=== PATIENT | female | born 1950 | race Caucasian/White ===

== ENCOUNTER 2018-04-29 07:30 | Inpatient (IN) | payer OTHER, BC ==
--- NOTE | 2018-04-29 06:53 | PDHPUP ---
History & Physical Update H&P update statement: This history and physical update is based on an assessment of the patient which was completed after admission or registration (within 24 hours), but prior to the surgery/procedure. H&P update: H&P reviewed & patient examined, no change in patient's condition since H&P completed
[2018-04-29] MEDS ORDERED: GABAPENTIN 300 MG CAP PO ONE (08:10)
[2018-04-29] MEDS ORDERED: ceFAZolin 2 GM/DEXTROSE 100 ML IV ONE (08:10)
[2018-04-29] MEDS ORDERED: ACETAMINOPHEN 500 MG TAB PO ONE (08:10)
[2018-04-29] MEDS ORDERED: LIDOCAINE 1% 2 ML INJ ID PRN (08:11)
[2018-04-29] MEDS ORDERED: LR 1,000 ML IV ONE (08:11)
[2018-04-29] MEDS ORDERED: CHLORHEXIDINE GLUC HIBICLENS 118 ML BTL TP ONE (09:32)
[2018-04-29] MEDS ORDERED: EPINEPHrine 1 MG/ML INJ ONE (09:32)
[2018-04-29] MEDS ORDERED: THROMBIN (BOVINE) 5,000 UNIT VIAL TP ONE (09:32)
[2018-04-29] MEDS ORDERED: BUPIVACAINE 0.25% 30 ML SDV ONE (09:32)
[2018-04-29] MEDS ORDERED: BACITRACIN 50,000 UNITS/10 ML SYR IRR ONE ×3 (09:33→13:56)
[2018-04-29] MEDS ORDERED: PROPOFOL 200 MG/20 ML VIAL ONE (10:31)
[2018-04-29] MEDS ORDERED: fentaNYL 100 MCG/2 ML INJ ONE ×3 (10:32→16:12)
[2018-04-29] MEDS ORDERED: THROMBIN (BOVINE) 20,000 UNIT VIAL TP ONE (10:48)
[2018-04-29] MEDS ORDERED: DEXAMETHASONE 4 MG/ML VIAL ONE (11:13)
[2018-04-29] MEDS ORDERED: ONDANSETRON 4 MG/2 ML VIAL ONE (11:13)
[2018-04-29] MEDS ORDERED: LIDOCAINE 2% 2 ML INJ ONE (11:13)
[2018-04-29] MEDS ORDERED: ROCURONIUM 50 MG/5 ML VIAL ONE (11:13)
[2018-04-29] MEDS ORDERED: ACETAMINOPHEN 325 MG TAB PO PRN (11:13)
[2018-04-29] MEDS ORDERED: LACTULOSE 20 GM/30 ML UDCUP PO PRN (11:14)
[2018-04-29] MEDS ORDERED: diphenhydrAMINE 25 MG CAP PO PRN (11:14)
[2018-04-29] MEDS ORDERED: BISACODYL 10 MG SUPP PR PRN (11:14)
[2018-04-29] MEDS ORDERED: MAGNESIUM HYDROXIDE 30 ML UDCUP PO PRN (11:14)
[2018-04-29] MEDS ORDERED: NS 1,000 ML IV SCH (11:15)
[2018-04-29] MEDS ORDERED: ePHEDrine SULFATE 25 MG/5 ML SYR ONE (11:32)
[2018-04-29] MEDS ORDERED: ALBUTEROL 3 ML DEYVIAL IH PRN (12:16)
[2018-04-29] MEDS ORDERED: ONDANSETRON 4 MG/2 ML VIAL IVP PRN (12:16)
[2018-04-29] MEDS ORDERED: DEXAMETHASONE 4 MG/ML VIAL IVP PRN (12:16)
[2018-04-29] MEDS ORDERED: NALOXONE HCL 0.4 MG/ML INJ IVP PRN (12:16)
--- NOTE | 2018-04-29 12:18 | PDANEPAE ---
ANE History of Present Illness TLIF ANE Past Medical History - Cardiovascular History Hx Hypertension: No Hx Arrhythmias: No Hx Chest Pain: No Hx Coronary Artery / Peripheral Vascular Disease: No Hx CHF / Valvular Disease: Yes Hx Palpitations: No Cardiovascular History Comment: mild mitral valve prolapse- asymptomatic, was seeing Dr. Shafer at [facility]- will obtain records - Pulmonary History Hx COPD: No Hx Asthma/Reactive Airway Disease: No Hx Recent Upper Respiratory Infection: No Hx Oxygen in Use at Home: No Hx Sleep Apnea: No Sleep Apnea Screening Result - Last Documented: Negative - Neurologic History Hx Cerebrovascular Accident: No Hx Seizures: No Hx Dementia: No Neurologic History Comment: numbness and tingling to bilateral legs and feet with burning to feet- pretty constant - Endocrine History Hx Diabetes: No Endocrine History Comment: large thyroid nodule- has been determined it is benign - Renal History Hx Renal Disorders: No Renal History Comment: hx of bladder prolapse repair - Liver History Hx Hepatic Disorders: No - Neurological & Psychiatric Hx Hx Neurological and Psychiatric Disorders: No Neurological / Psychiatric History Comment: VIJAYA - Cancer History Hx Cancer: No - Congenital Disorder History Hx Congenital Disorders: Yes Congenital History Comment: LOURDES DANLOS DISORDER - GI History Hx Gastrointestinal Disorders: Yes Gastrointestinal History Comment: IBSD. GERD - Other Health History Other Health History: wears bilateral hearing aides. mast cell activation syndrome - Chronic Pain History Chronic Pain: Yes (lower back, c-spine) - Surgical History Prior Surgeries: SHOULDER RECONS 1-left & 2 -right. vijaya. ERCP. bladder prolapse repair. bunionectomy and metatarsal repair- bilaterally. hysterectomy. tonsillectomy. breast lumpectomy. hyperplastic colon polyp removed. dental implants ANE Review of Systems Review of Systems: - Exercise capacity METS (RN): 4 METS ANE Patient History - Allergies Allergies/Adverse Reactions: Corticosteroids (Glucocorticoids) Allergy (Verified 04/29/18 08:42) intense - Home Medications Home Medications: Acetaminophen [Tylenol 325mg (*)] 325 mg PO DAILY PRN 04/16/18 [Last Taken 04/26] Cetirizine [ZyrTEC 10 mg (*)] 40 mg PO DAILY 04/16/18 [Last Taken 04/22/18] Estradiol [Estrace Vaginal (*)] 1 imer VG Q3D 04/16/18 [Last Taken 04/22/18] Famotidine [Pepcid 20 MG (*)] 10 mg PO BID 04/16/18 [Last Taken 04/29/18 06:30] Herbals/Supplements -Info Only 1 ea PO DAILY 04/16/18 [Last Taken 04/22/18] metroNIDAZOLE 0.75% [Vandazole Vaginal Gel (RX)] 1 imer VG BID 04/16/18 [Last Taken 04/28/18] - NPO status NPO Since - Liquids (Date): 04/29/18 NPO Since - Liquids (Time): 06:30 NPO Since - Solids (Date): 04/28/18 NPO Since - Solids (Time): 17:30 - Smoking Hx Smoking Status: Never smoked - Family Anes Hx Family Hx Anesthesia Complications: none ANE Labs/Vital Signs - Vital Signs Blood Pressure: 115/73 Heart Rate: 57 Respiratory Rate: 18 O2 Sat (%): 94 Height: 170.18 cm Weight: 71.21 kg ANE Physical Exam - Airway Neck exam: FROM Mallampati Score: Class 2 Mouth exam: normal dental/mouth exam - Pulmonary Pulmonary: clear to auscultation - Cardiovascular Cardiovascular: regular rate and rhythym - ASA Status ASA Status: II ANE Anesthesia Plan Anesthesia Plan: general endotracheal anesthesia
[2018-04-29] MEDS ORDERED: ceFAZolin 1 GM VIAL ONE (15:19)
--- NOTE | 2018-04-29 15:58 | POSTOPPROG ---
Post Op Note Date of Operation: 04/29/18 Surgeon: Radha Ball [employer] Claim Adjuster: Cindy Stiles PA-C Anesthesiologist: Harsha Anesthesia: GET(General Endotracheal), Local (Specify) Pre-op Diagnosis: Lumbar stenosis L3-S1 Post-op Diagnosis: Lumbar stenosis L3-S1 Indication: LE pain and LBP Procedure: L3/4, L4/5 and L5/S1 TLIF Findings: none Inf/Abcess present in the surg proc area at time of surgery?: No Depth: Deep Incisional (Fascial) EBL: 100-500 Total fluids administered: see anesthesia record Complications: none Drains: Jluis Schmidt
--- NOTE | 2018-04-29 16:03 | SOAPPROG ---
SOAP Progress Note Assessment/Plan: Post Op Visit: S: Awake and alert, NAD. Pt with expected lower back pain O: AAO x 3 PERRLA/EOMI no droop CN 2-12 grossly intact +lt touch 5/5 BUE/BLE= ANA CRISTINA in place and working well A/P: 67 yo female that is s/p TLIF L3-S1 -orders in place -call with any questions or concerns -pt seen by Dr Ball as well -PT/OT -brace when out of bed Objective: Vital Signs Temp Pulse Resp BP Pulse Ox 36.9 C 57 L 18 115/73 94 04/29/18 09:32 04/29/18 12:18 04/29/18 12:18 04/29/18 12:18 04/29/18 12:18 ICD10 Worksheet Patient Problems: Problems Problem Status Onset Arthrodesis status Acute Lumbago Acute Lumbar radicular pain Acute Lumbar spine pain Acute - ICD10 Problem Qualifiers (1) Lumbar spine pain (2) Lumbago (3) Lumbar radicular pain (4) Arthrodesis status
--- NOTE | 2018-04-29 16:13 | POSTANESTH ---
Post Anesthetic Evaluation Cardiovascular Status: Normal, Stable Respiratory Status: Normal, Stable Level of Consciousness/Mental Status: Can Participate in Eval, Alert and Oriented Pain Control: Adequate, Prn Tx Ordered Nausea/Vomiting Control: Adequate, Prn Tx Ordered Complications Possibly Related to Anesthesia: None Noted
[2018-04-29] MEDS: fentaNYL 100 MCG/2 ML INJ IVP PRN ×4 (16:23→17:04)
[2018-04-29] MEDS: ONDANSETRON 4 MG/2 ML VIAL IVP PRN (17:48)
[2018-04-29] MEDS: ACETAMINOPHEN 500 MG TAB PO SCH ×2 (18:22→22:18)
[2018-04-29] MEDS: fentaNYL 100 MCG/2 ML INJ IV PRN ×2 (18:23→19:38)
[2018-04-29] MEDS: GABAPENTIN 300 MG CAP PO SCH ×2 (18:28→22:17)
[2018-04-29] MEDS: ceFAZolin 2 GM/DEXTROSE 100 ML IV SCH (18:29)
[2018-04-29] MEDS: ONDANSETRON DISINTEGRATING 4 MG TAB PO PRN ×2 (19:39→22:19)
[2018-04-29] MEDS: FAMOTIDINE 20 MG TAB PO SCH ×2 (21:14)
[2018-04-29] MEDS: SENNOSIDES/DOCUSATE SODIUM TAB PO SCH (21:15)
[2018-04-29] MEDS: METHOCARBAMOL 750 MG TAB PO PRN (21:18)
[2018-04-29] MEDS: METRONIDAZOLE 0.75% VG SCH (22:17)
[2018-04-30] MEDS: ceFAZolin 2 GM/DEXTROSE 100 ML IV SCH (02:22)
--- NOTE | 2018-04-30 03:50 | GOP ---
DATE OF OPERATION: 04/29/2018 SURGEON: Yogesh Ball MD INGOT STRIPPER: Skyler Stiles PA-C. PREOPERATIVE DIAGNOSIS: Bilateral lumbosacral radiculopathy with spondylolisthesis L3-4, L4-5, a degenerative scoliosis of the lumbar spine to the right at L3-4, L4-5, and to the left at L5-S1 with severe left L5-S1 foraminal stenosis, central stenosis L3-4, L4-5. POSTOPERATIVE DIAGNOSIS: Bilateral lumbosacral radiculopathy with spondylolisthesis L3-4, L4-5, a degenerative scoliosis of the lumbar spine to the right at L3-4, L4-5, and to the left at L5-S1 with severe left L5-S1 foraminal stenosis, central stenosis L3-4, L4-5. PROCEDURE PERFORMED: FINDINGS: Were consistent with MRI. SPECIMENS: None. ESTIMATED BLOOD LOSS: 250 cc. DESCRIPTION OF PROCEDURE: The patient was taken to the operating room, placed in supine position. General anesthesia was begun. She was flipped prone onto the Jluis table. Care was taken to pad all points of contact. Her back was sterilely prepped and draped in the usual fashion. A localizing x-ray was taken. We made a midline incision from the spinous process of L2, the spinous process of S1. The subcutaneous tissue was dissected using Bovie cautery down to the fascia and a subperiosteal dissection was made down the L3-4, L5-S1 lamina. A self-retaining retractor was placed. A localizing x-ray was taken. We denuded the bilateral 3-4, 4-5,5-1 facets to create arthrodesis. We preserved the L2-3 facets rostrally. We attached the Stealth reference frame, performed an O-arm spin and using frame of Stealth stereotaxy, placed pedicle screws bilaterally at the sacrum at L5, L4, and L3. The L3 screws were in a trajectory to try to spare the L2-3 facet joint above. The screws stimulated at acceptable levels. 3D imaging was performed to confirm all the screw positions. We placed a 90 mm suzan on the left and 100 mm suzan on the right. We placed the rods down over the tulips , distracted on the left at 5-1 and on the right at 3-4, 4-5 and then final tightened all the cap screws. This maneuver alone had reduced the degenerative scoliotic curve and the spondylolisthesis was reduced. She had only a grade 1 spondylolisthesis to begin with. Good excellent alignment. Had a nice lumbar lordosis. We removed all the soft tissue to bone at L3-4, 4-5, 5-1.. We harvested the L4 and L5 spinous process. We drilled bilateral laminectomies at L3-4, 4-5 and harvested this bone for autologous grafting purposes. We drilled a left L5-S1 hemilaminectomy and complete facetectomy and harvested this bone for autologous grafting purposes. Under the microscope, we opened the spinal canal and decompressed the left hemicanal at L5-S1 including the left foramina of the exiting L5 nerve root. At L4-5, we decompressed bilaterally from pedicle to pedicle on each side. We preserved the left facet joint at L4-5 and at L3-4 and we did likewise at both levels, decompressing bilaterally, performing a central and bilateral recess decompression on each side. On the right at 3-4 and 4-5 we removed the facet joints and medically decompressed the exiting nerves. Under the microscope, we then swept the left S1 nerve root medially, incised the L5-S1 disk, removed the disk and the cartilaginous endplates. We roughened the subchondral bone to create arthrodesis at L5-S1 and then we did likewise at 3-4 and 4-5 from the right side. We moved the disk completely, roughened the subchondral bone to create arthrodesis. We sized each space and chose a 7 x 28 mm device. We inserted BMP and bone into the disk spaces followed by the 7 x 28 mm device with a large amount of bone autograft that we had harvested. We placed 9 strips of BMP, 3 total in each of the interspaces at 3-4, 4-5, 5-1. These were 1/4 BMP pads, inserted the device, and expanded under fluoroscopic guidance and we were happy with the position of all 3 devices. We then decorticated all the remaining posterolateral bone bilaterally. All the screws had been torqued to company specification. We placed bone autograft and BMP posterolaterally bilaterally and then placed a subfascial drain. WE then closed the incision in multiple layers using Vicryl sutures. A running PDS was placed in the skin itself. The patient was reversed from anesthesia, extubated, and transferred to recovery room in stable condition. PROCEDURE: Posterior lateral and intervertebral arthrodesis L3-4, L4-5, L5-S1 ( 07457, 23400 x 2), bilateral laminectomies at L3-4, L4-5, and left L5-S1 hemilaminectomy with complete facetectomy on the left at L5-S1 and on the right at L3-4, L4-5, with no surgical codes for this that is included in the prior code. We placed biomechanical intervertebral devices at L3-4, 4-5, 5-1 (55201 x 3, posterior segmental instrumentation L3, L4, L5, S1 (91742), microscope, same incision bone graft harvest, spinal stereotaxy. COMPLICATIONS: None. INSTRUMENTATION USE: A 5.5 mm Solera screw. We used a 100 mm suzan on the right and a 90 mm suzan on the left. They were titanium rods and we used a medium bone morphogenic protein. We used 3 7 x 28 mm Elevate cages. All of the screws were 6.5 mm in diameter. COMPLICATIONS: None. INDICATIONS FOR THE PROCEDURE: The patient is suffering from bilateral lumbosacral radiculopathy that varied from side to side. At times, the right was worse. At other times, the left was worse and I thought most of her symptoms originally were coming from L3-4, L4-5, but she did have very significant left leg symptoms at L5-S1. The left neural foramen for the exiting L5 nerve root was extremely stenotic. There was a degenerative leftward tilt of L5 on S1 and because of this, I felt that it needed to be included because of the left leg symptoms. She did have stenosis at L3-4, L4-5 centrally in the bilateral recesses at those levels, but the left leg symptoms prompted me to add the additional level at the lumbosacral junction. L3-4 and L4-5 were tilted to the right with right-sided foraminal stenosis at those levels. I discussed with the risk of adjacent segment disease, nerve injury, spinal fluid leak, continued symptoms, back pain, and she wanted to proceed despite the risks. She knew that additional surgery may become necessary in the future. There is risk of spinal fluid leak and even infection and she wanted to proceed despite these risks. /[id number]/MODL MTDD
[2018-04-30 04:31] LABS: PLATELET COUNT 176 10^3/uL (150-400)
[2018-04-30] MEDS: GABAPENTIN 300 MG CAP PO SCH ×3 (05:43→23:08)
[2018-04-30] MEDS: ACETAMINOPHEN 500 MG TAB PO SCH ×3 (05:44→23:06)
--- NOTE | 2018-04-30 08:08 | NEUSURGPN ---
Date of Surgery: 04/29/18 Post Op Day: 1 Assessment/Plan: Assessment: 67 yo female that is s/p TLIF L3-S1 POD#1 Plan: -Post op xrays pending -ANA CRISTINA 280ml output overnight, will removed this evening -PT/OT -brace when out of bed -Patient with left hand numbness, will continue to follow -Dr Ball will see patient as well Please call neurosurgery with any questions/concerns Subjective: Leg pain improved, expected incisional pain, happy with results Objective: Awake and alert. Pt with expected lower back pain. Leg pain improved AAO x 3 +lt touch 5/5 BUE/BLE= ANA CRISTINA patent Neuro Check Frequency: per routine Urinary Catheter in Place: No Catheter Insertion Date: 04/29/18 - Physician Discussed Patient with : Quinn Patient Seen by : Quinn Neurosurgery Physical Exam - Vitals, I&O, Labs I and O 04/29/18 04/30/18 05/01/18 05:59 05:59 05:59 Intake Total 2980 500 Output Total 1060 1800 Balance 1920 -1300 Weight 71.21 kg Intake: Oral (ml) 265 500 IV Intake (ml) 1700 IV Infused (ml) 1015 Ns 1,000 ml @ 75 mls/hr 900 IV CONT TRISTON Rx#: [id number] ceFAZolin 2 GM/DEXTROSE 115 100 ml @ 200 mls/hr IV Q8H TRISTON Rx#:[id number] Output: Urine (ml) 530 1800 Catheter 530 1800 Estimated Blood Loss (ml) 250 ANA CRISTINA Drain Output (ml) 280 #1 Back Jluis Schmidt 280 Vital Signs Temp Pulse Resp BP Pulse Ox 36.7 C 89 16 104/67 98 04/30/18 07:52 04/30/18 07:52 04/30/18 07:52 04/30/18 07:52 04/30/18 07:52 Laboratory Results 04/30/18 04:14 04/30/18 04:14 ICD10 Worksheet Patient Problems: Problems Problem Status Onset Arthrodesis status Acute Lumbago Acute Lumbar radicular pain Acute Lumbar spine pain Acute
[2018-04-30] MEDS: FAMOTIDINE 20 MG TAB PO SCH ×3 (08:21→23:05)
[2018-04-30] MEDS: SENNOSIDES/DOCUSATE SODIUM TAB PO SCH ×2 (08:21→23:06)
[2018-04-30] MEDS: POLYETHYLENE GLYCOL 3350 17 GM PKT PO PRN (08:21)
[2018-04-30] MEDS: METHOCARBAMOL 750 MG TAB PO PRN ×2 (08:22→16:19)
[2018-04-30] MEDS ORDERED: CETIRIZINE 10 MG TAB PO SCH (09:00)
--- NOTE | 2018-04-30 09:56 | PDMN ---
Medical Necessity Medical necessity: [facility] IP only surgery; cpt 95276 Lumbar Fusion (L3/S1 TLIF)
--- NOTE | 2018-04-30 10:26 | ASMTCMCOM ---
CM Note CM Note Notes: Spoke with pt and in the room. Pt lives independently with , admitted for lower radiating back pain and had lumbar arthrodesis, laminectomy and facetectomy yesterday. Worked with PT this morning. PT recommending home independently, but pt endorses increased pain after PT and slight concern over that plan. Pt's also concerned. Pt feels it will likely be a good plan to go home independently but would like to work with OT to establish confidence. D/C Plan: likely independent, TBD Date Signed: 04/30/2018 10:25 AM Electronically Signed By:Cathie Oconnell
[2018-04-30] MEDS: METRONIDAZOLE 0.75% VG SCH ×2 (11:14→22:57)
--- NOTE | 2018-04-30 14:18 | ASMTCMCOM ---
CM Note CM Note Notes: Addendum to previous note: Pt has been preapproved for [facility] if pt decides she wants home care. Nica is the contact for [facility] and is happy to speak with the patient if that is helpful. Her number is [phone]. Gal is the ordering physician's choice. Date Signed: 04/30/2018 02:17 PM Electronically Signed By:Cathie Oconnell
[2018-04-30] MEDS: CETIRIZINE 10 MG TAB PO SCH (23:05)
[2018-05-01] MEDS: ACETAMINOPHEN 500 MG TAB PO SCH ×3 (05:27→20:57)
[2018-05-01] MEDS: GABAPENTIN 300 MG CAP PO SCH ×3 (05:28→20:58)
[2018-05-01] MEDS: METHOCARBAMOL 750 MG TAB PO PRN ×3 (05:39→16:41)
--- NOTE | 2018-05-01 08:17 | NEUSURGPN ---
Assessment/Plan: Assessment: 67 yo female that is s/p TLIF L3-S1 POD#2 Plan: -Post op xrays show stable hardware -ANA CRISTINA drain is out -PT/OT -brace when out of bed -Patient with left hand numbness, will continue to follow - this is improving -Pt with increased pain this am, cont current regimen with tylenol, morphine, robaxin. Add polar care ice pack -Dr Dr Ball Please call neurosurgery with any questions/concerns Subjective: Pt resting in bed, states pain goes up to a 7 with movement Objective: AAOx3 NAD VSS MAEx4 Motor 5/5 BLE +LT Urinary Catheter in Place: No Catheter Insertion Date: 04/29/18 - Physician Discussed Patient with : Quinn Neurosurgery Physical Exam - Vitals, I&O, Labs I and O 04/30/18 05/01/18 05/02/18 05:59 05:59 05:59 Intake Total 2980 1100 Output Total 1060 5200 Balance 1920 -4100 Weight 71.21 kg Intake: Oral (ml) 265 1100 IV Intake (ml) 1700 IV Infused (ml) 1015 Ns 1,000 ml @ 75 mls/hr 900 IV CONT TRISTON Rx#: [id number] ceFAZolin 2 GM/DEXTROSE 115 100 ml @ 200 mls/hr IV Q8H TRISTON Rx#:[id number] Output: Urine (ml) 530 5200 Catheter 530 1800 Toilet 3400 Estimated Blood Loss (ml) 250 ANA CRISTINA Drain Output (ml) 280 #1 Back Jluis Schmidt 280 Other: Bladder Scan Volume (ml) Bedside Commode 161 Vital Signs Temp Pulse Resp BP Pulse Ox 37.2 C 79 14 88/66 L 89 L 05/01/18 07:22 05/01/18 07:22 05/01/18 07:22 05/01/18 07:22 05/01/18 07:22 Laboratory Results 04/30/18 04:14 04/30/18 04:14 ICD10 Worksheet Patient Problems: Problems Problem Status Onset Arthrodesis status Acute Lumbago Acute Lumbar radicular pain Acute Lumbar spine pain Acute
[2018-05-01] MEDS: SENNOSIDES/DOCUSATE SODIUM TAB PO SCH ×2 (08:23→20:56)
[2018-05-01] MEDS: POLYETHYLENE GLYCOL 3350 17 GM PKT PO PRN (08:24)
[2018-05-01] MEDS: FAMOTIDINE 20 MG TAB PO SCH ×2 (08:27→20:56)
[2018-05-01] MEDS: METRONIDAZOLE 0.75% VG SCH ×2 (08:29→20:56)
--- NOTE | 2018-05-01 14:16 | ASMTCMCOM ---
CM Note CM Note Notes: Today pt reports she does want [facility] at d/c, Nica with [facility] updated and she visited with pt today. D/c plan of care: Home with [facility] Date Signed: 05/01/2018 02:14 PM Electronically Signed By:BUSHRA Weston
[2018-05-01] MEDS: CETIRIZINE 10 MG TAB PO SCH (20:56)
[2018-05-02] MEDS: ONDANSETRON DISINTEGRATING 4 MG TAB PO PRN (03:19)
[2018-05-02] MEDS: GABAPENTIN 300 MG CAP PO SCH ×4 (06:07→21:35)
[2018-05-02] MEDS: ACETAMINOPHEN 500 MG TAB PO SCH ×4 (06:07→21:35)
[2018-05-02] MEDS: ONDANSETRON 4 MG/2 ML VIAL IVP PRN (06:13)
[2018-05-02] MEDS ORDERED: ESTRADIOL 42.5 GM CRTUBE VG SCH (08:00)
[2018-05-02] MEDS: ENOXAPARIN 40 MG/0.4 ML SYR SC SCH (09:12)
[2018-05-02] MEDS: SENNOSIDES/DOCUSATE SODIUM TAB PO SCH ×2 (09:12→20:11)
[2018-05-02] MEDS: POLYETHYLENE GLYCOL 3350 17 GM PKT PO PRN (09:12)
[2018-05-02] MEDS: FAMOTIDINE 20 MG TAB PO SCH ×2 (09:12→21:35)
[2018-05-02] MEDS: METHOCARBAMOL 750 MG TAB PO PRN ×3 (09:13→20:21)
[2018-05-02] MEDS: METRONIDAZOLE 0.75% VG SCH ×2 (09:15→21:40)
--- NOTE | 2018-05-02 11:34 | NEUSURGPN ---
Assessment/Plan: Assessment: 67 yo female that is s/p TLIF L3-S1 POD#3 Plan: -Stable and doing well overall with pain this morning, did have problems with nausea last night. -Optimize pain management- doing better on robaxin, tylenol, gabapentin and MS IR when necessary -Still no BM- aggressive bowel regimen -Post op xrays show stable hardware -PT/OT -brace when out of bed -Dressing removed, leave steri strips no other dressing needed unless wanted for comfort -Patient with left hand numbness, will continue to follow - this is improving -Dispo- if has BM today and cleared by PT, could go home today, otherwise tomorrow -Dr Dr Ball Please call neurosurgery with any questions/concerns Subjective: Pt resting in bed, states pain better this morning at a 6/10. Had nausea last night and wonders if this could also be due to not having BM yet. Objective: AAOx3 NAD VSS MAEx4 Motor 5/5 BLE Incision c/d/i- dressing removed +LT Catheter Insertion Date: 04/29/18 - Physician Discussed Patient with : Quinn Neurosurgery Physical Exam - Vitals, I&O, Labs I and O 05/01/18 05/02/18 05/03/18 05:59 05:59 05:59 Intake Total 1100 500 Output Total 5200 850 Balance -4100 -350 Intake: Oral (ml) 1100 500 Output: Urine (ml) 5200 850 Catheter 1800 Toilet 3400 850 Other: Intake Quantity Yes Sufficient Number of Voids Toilet 1 Bladder Scan Volume (ml) Bedside Commode 161 Vital Signs Temp Pulse Resp BP Pulse Ox 36.7 C 87 16 104/66 95 05/02/18 08:00 05/02/18 08:00 05/02/18 08:00 05/02/18 08:00 05/02/18 08:00 Laboratory Results 04/30/18 04:14 04/30/18 04:14 ICD10 Worksheet Patient Problems: Problems Problem Status Onset Arthrodesis status Acute Lumbago Acute Lumbar radicular pain Acute Lumbar spine pain Acute
[2018-05-02] MEDS: CETIRIZINE 10 MG TAB PO SCH (21:35)
[2018-05-03] MEDS: METHOCARBAMOL 750 MG TAB PO PRN ×3 (01:59→14:19)
[2018-05-03] MEDS: GABAPENTIN 300 MG CAP PO SCH ×2 (05:16→14:19)
[2018-05-03] MEDS: ACETAMINOPHEN 500 MG TAB PO SCH ×2 (05:16→14:19)
[2018-05-03] MEDS: ENOXAPARIN 40 MG/0.4 ML SYR SC SCH (08:38)
[2018-05-03] MEDS: FAMOTIDINE 20 MG TAB PO SCH (08:38)
[2018-05-03] MEDS: METRONIDAZOLE 0.75% VG SCH (08:39)
[2018-05-03] MEDS: SENNOSIDES/DOCUSATE SODIUM TAB PO SCH (08:39)
[2018-05-03 09:37] VITALS: BP 135/80
--- NOTE | 2018-05-03 12:26 | NEUSURGPN ---
Assessment/Plan: Assessment: 67 yo female that is s/p TLIF L3-S1 POD#4 Plan: -Stable and doing well overall with pain this morning, had BMs yesterday and doing better with PT as well today -Optimize pain management- doing better on robaxin, tylenol, gabapentin and MS IR when necessary -Having BMs now, continue regimen as necessary -Post op xrays show stable hardware -PT/OT -brace when out of bed -Dressing removed, leave steri strips no other dressing needed unless wanted for comfort -Dispo- Doing better with PT today, ok to go home today with home health -Dr Dr Ball Please call neurosurgery with any questions/concerns Subjective: Pt in chair. Has global incisional pain and some numbness in lateral thighs but pain overall is improved since surgery. Had BM yesterday and progressed with PT today. Eager to go home today. Objective: AAOx3 NAD VSS MAEx4 Motor 5/5 BLE Incision c/d/i- dressing removed +LT Catheter Insertion Date: 04/29/18 - Physician Discussed Patient with : Quinn Neurosurgery Physical Exam - Vitals, I&O, Labs I and O 05/02/18 05/03/18 05/04/18 05:59 05:59 05:59 Intake Total 500 500 Output Total 850 Balance -350 500 Intake: Oral (ml) 500 500 Output: Urine (ml) 850 Toilet 850 Other: Intake Quantity Yes Yes Sufficient Number of Voids Bedside Commode 1 Toilet 1 1 Number of Stools Bedside Commode 1 Toilet 1 Vital Signs Temp Pulse Resp BP Pulse Ox 36.7 C 69 16 135/80 H 94 05/03/18 07:32 05/03/18 07:32 05/03/18 07:32 05/03/18 07:32 05/03/18 07:32 Laboratory Results 04/30/18 04:14 04/30/18 04:14 ICD10 Worksheet Patient Problems: Problems Problem Status Onset Arthrodesis status Acute Lumbago Acute Lumbar radicular pain Acute Lumbar spine pain Acute
--- NOTE | 2018-05-03 12:31 | PDIAF ---
- Diagnosis Code Status: Full Code - Medication Management Discharge Medications: Medications to Continue on Transfer Acetaminophen [Tylenol 325mg (*)] 325 mg PO DAILY PRN 04/16/18 [Last Taken 04/26] Cetirizine [ZyrTEC 10 mg (*)] 40 mg PO HS 04/16/18 [Last Taken 04/22/18] Estradiol [Estrace Vaginal (*)] 1 imer VG Q3D 04/16/18 [Last Taken 04/22/18] Famotidine [Pepcid 20 MG (*)] 10 mg PO BID 04/16/18 [Last Taken 04/29/18 06:30] Herbals/Supplements -Info Only 1 ea PO DAILY 04/16/18 [Last Taken 04/22/18] metroNIDAZOLE 0.75% [Vandazole Vaginal Gel] 1 imer VG BID 04/16/18 [Last Taken ] Acetaminophen [Tylenol ES 500 mg (*)] 1,000 mg PO Q8HRS tab 05/02/18 [Last Taken Unknown] Gabapentin [Neurontin 300 MG (*)] 300 mg PO Q8HRS #90 cap 05/02/18 [Last Taken Unknown] Methocarbamol [Robaxin 750 mg (*)] 750 mg PO QID PRN #60 tab 05/02/18 [Last Taken Unknown] Ondansetron Odt [Zofran Odt 4 mg (*)] 4 - 8 mg PO Q6HRS PRN #30 tab 05/02/18 [ Last Taken Unknown] Polyethylene Glycol 3350 [Miralax 17 gm (*)] 17 gm PO DAILY PRN pkt 05/02/18 [ Last Taken Unknown] Sennosides/Docusate Sodium [Senokot-S] 1 - 2 tab PO BID tab 05/02/18 [Last Taken Unknown] morphINE IR [morphINE IR 15 mg (*)] 7.5 - 15 mg PO Q4H PRN #20 tab 05/02/18 [ Last Taken Unknown] Discharge Medications: Refer to the Discharge Home Medication list for PRN reason. - Orders Services needed: Home Care, Physical Therapy Home Care Face to Face: I certify that this patient was under my care and that I had the required [id number] encounter meeting the encounter requirements on the discharge day. My findings support the fact that the patient is homebound as defined in Home Care Face to Face Continued: [facility] Chapter 7 Medicare Benefits Manual 30.1.1 , The condition of the patient is such that there exists a normal inability to leave home and consequently, leaving home would require a considerable and taxing effort. Diet Recommendation: no restrictions on diet Diet Texture: Regular Texture Diet Wound Care Instructions: Follow up with Dr. Ball in 2 weeks. No NSAIDs for 6 months. wear your brace when you are up and OOB. You may shower as of 05/03, keep short 5-7 minutes, let warm soapy wash over incision, pat dry with towel keep clean and dry. Steri strips to remain in place and will fall off on their own. No dressing needed over steri strips unless wanted for comfort. No bending , lifting, twisting more than 5-10 pounds. Monitor your incision for signs of infection. Call with any questions or concerns Activity/Weight Bearing Restrictions: Follow up with Dr. Ball in 2 weeks. No NSAIDs for 6 months. wear your brace when you are up and OOB. You may shower as of 05/03, keep short 5-7 minutes, let warm soapy wash over incision, pat dry with towel keep clean and dry. Steri strips to remain in place and will fall off on their own. No dressing needed over steri strips unless wanted for comfort. No bending, lifting, twisting more than 5-10 pounds. Monitor your incision for signs of infection. Call with any questions or concerns Additional Instructions: Follow up with Dr. Ball in 2 weeks No NSAIDs for 6 months wear your brace when you are up and OOB You may shower as of 05/03, keep short 5-7 minutes, let warm soapy wash over incision, pat dry with towel keep clean and dry. Steri strips to remain in place and will fall off on their own. No dressing needed over steri strips unless wanted for comfort No bending, lifting, twisting more than 5-10 pounds Monitor your incision for signs of infection Call with any questions or concerns - Follow Up Care Current Providers and Referrals: Katarzyna Wood MD [Primary Care Provider] - Radha Ball MD [Medical Doctor] -
--- NOTE | 2018-05-03 14:11 | ASMTDCNOTE ---
Case Management Discharge Discharge Order Complete? Answers: Yes Transportation Arranged Answers: Family/Friends Transport will Pick (Date 05/03/2018 03:00 PM & Time) Faxed Final Orders Answers: Yes Notes: [facility] Family Notified Answers: Yes Notes: Family to transport Discharge Comments Notes: Patient has been discharged home with and [facility]. Date Signed: 05/03/2018 02:10 PM Electronically Signed By:Francheska Burnham LCSW
--- NOTE | 2018-05-03 14:22 | ASDISCHSUM ---
Discharge Information Plan Status:Home with Home Health Medically Cleared to Leave:05/03/2018 Discharge Date:05/03/2018 D/C Disposition:Home Health Service [facility] D/C Disposition:Home, Routine, Self-Care Projected Discharge Date:05/03/2018 03:00 PM Transportation at D/C:Family Discharge Delay Reason: Follow-Up Date:05/03/2018 03:00 PM Discharge Slot: Final Diagnosis:Lumbar instability, Stenosis Placement Information Referral Type:*Home Health Care Services Referral ID:[id number] Provider Name:[facility] ([facility]) Address 1:[address] [place] [address] Address 2: City:[place] Selection Factors: State:[place] Referral Type:*Home Health Care Services Referral ID:[id number] Provider Name:[facility] ([facility]) Address 1:[address] [place] [address] Address 2: City:[place] Selection Factors: State:[place] Patient Contact Information Contact Name:IRIS Relationship:Daughter Address: Home Phone: City: [facility] Phone: [facility] Code: Email: Financial Information Financial Class:Medicare Primary Plan Desc:MEDICARE INPATIENT Primary Plan Number:[id number] Secondary Plan Desc:[employer] FEDERAL PLAN Secondary Plan Number:[id number] Assessment Information [facility] CM Progress Note CM Note CM Note Notes: Spoke with pt and in the room. Pt lives independently with , admitted for lower radiating back pain and had lumbar arthrodesis, laminectomy and facetectomy yesterday. Worked with PT this morning. PT recommending home independently, but pt endorses increased pain after PT and slight concern over that plan. Pt's also concerned. Pt feels it will likely be a good plan to go home independently but would like to work with OT to establish confidence. D/C Plan: likely independent, TBD Date Signed: 04/30/2018 10:25 AM Electronically Signed By:Cathie Oconnell [facility] CM Progress Note CM Note CM Note Notes: Addendum to previous note: Pt has been preapproved for [facility] if pt decides she wants home care. Nica is the contact for [facility] and is happy to speak with the patient if that is helpful. Her number is [phone]. Gal is the ordering physician's choice. Date Signed: 04/30/2018 02:17 PM Electronically Signed By:Cathie Oconnell [facility] CM Progress Note CM Note CM Note Notes: Today pt reports she does want [facility] PT at d/c, Nica with [facility] updated and she visited with pt today. D/c plan of care: Home with [facility] Date Signed: 05/01/2018 02:14 PM Electronically Signed By:BUSHRA Weston Case Management Discharge Plan Note Case Management Discharge Discharge Order Complete? Answers: Yes Transportation Arranged Answers: Family/Friends Transport will Pick (Date 05/03/2018 03:00 PM & Time) Faxed Final Orders Answers: Yes Notes: [facility] Family Notified Answers: Yes Notes: Family to transport Discharge Comments Notes: Patient has been discharged home with and [facility]. Date Signed: 05/03/2018 02:10 PM Electronically Signed By:Francheska Burnham LCSW Intervention Information
[2018-05-03] MEDS: ONDANSETRON DISINTEGRATING 4 MG TAB PO PRN (14:54)
== END 2018-05-03 15:29 | disposition home health service (06) | DRG 455 ==
LOC: F3N 07:59
PROVIDERS: ADMIT Neurological Surgery; ATTEND Neurological Surgery
DX: M51.17 Intervertebral disc disorders with radiculopathy, lumbosacral region (principal); M43.16 Spondylolisthesis, lumbar region; M41.86 Other forms of scoliosis, lumbar region; Z23 Encounter for immunization
CPT/HCPCS: 97116-GP; 97161-GP; 97165-GO; 97530-GO; 97530-GP; 97535-GO; C1713; G8978-GP-CJ; G8979-GP-CI; G8987-GO-CJ; G8988-GO-CI; G8989-GO-CI; J0171; J0690; J1100; J1650; J2270; J2405; J2704; J3010

== ENCOUNTER → 2018-11-03 | Outpatient (CLI) | payer OTHER, BC | LOC: FIMAGING 13:35 | PROVIDERS: ATTEND Physician Assistant | DX: M54.16 Radiculopathy, lumbar region (principal); Z98.1 Arthrodesis status ==

== ENCOUNTER → 2018-11-16 | Outpatient (CLI) | payer OTHER, BC | LOC: FIMAGING 09:45 | PROVIDERS: ATTEND Physician Assistant | DX: M54.16 Radiculopathy, lumbar region (principal); M51.36 Other intervertebral disc degeneration, lumbar region; M50.01 Cervical disc disorder with myelopathy, high cervical region; M51.27 Other intervertebral disc displacement, lumbosacral region ==

== ENCOUNTER → 2019-01-25 | Outpatient (CLI) | payer OTHER, BC | LOC: BHFA 10:45 ==